=== PATIENT | female | born 1990 | race Caucasian/White ===

== ENCOUNTER 2024-09-24 15:57 | Outpatient (REF) | payer BC, SELFPAY ==
--- NOTE | ~2024-09-24 | MR_ITS ---
EXAMINATION: MR BRAIN WITHOUT THEN WITH IV CONTRAST HISTORY: ASYMMETRIC SENSORINEURAL HEARING LOSS, VERTIGO, EVAL LESION TECHNIQUE: Sagittal T1, and axial FLAIR, gradient echo, and diffusion weighted MR images of the brain were obtained. In addition, high resolution T2-weighted images were obtained through the internal auditory canals. Subsequently, axial and coronal T1-weighted images were obtained through the internal auditory canals before and after the administration of intravenous gadolinium. 5 mL Gadavist was administered. COMPARISON: None FINDINGS: The brain parenchyma is unremarkable, demonstrating normal shell/white differentiation. No foci of abnormal signal intensity are identified. The ventricular system is normal in size and configuration. There is no mass effect or midline shift. No intra or extra-axial fluid collections are identified. There are no foci of restricted diffusion. The bilateral 7th and 8th complexes are unremarkable in appearance without evidence of abnormal nodularity or contrast enhancement. No abnormal contrast enhancement is seen in the remainder of the brain. Normal vascular flow voids are noted in the basilar and carotid arteries. The visualized paranasal sinuses are clear. MR/MR head/brain wo/w con IMPRESSION: Unremarkable MRI of the brain and internal auditory canals without and with contrast. Electronically signed by: Alonzo Ramos MD 09/25/2024 12:56 PM EDT
[2024-09-24] MEDS: gadobutroL 7.5 ML VIAL IVPUSH (16:20)
== END 2024-09-24 15:58 | disposition home or self-care (01) ==
LOC: HO.MRI 15:57
PROVIDERS: PCP Internal Medicine; Visit Provider Physician Assistant Surgical
DX: H90.42 Sensorineural hearing loss, unilateral, left ear, with unrestricted hearing on the contralateral side (principal); H93.12 Tinnitus, left ear
CPT/HCPCS: 70553; A9585

== ENCOUNTER → 2024-09-24 16:15 | Outpatient (BNV) | payer BC, SELFPAY | PROVIDERS: PCP Internal Medicine; Visit Provider Radiology Diagnostic Radiology | DX: H90.42 Sensorineural hearing loss, unilateral, left ear, with unrestricted hearing on the contralateral side (principal) | CPT/HCPCS: 70553 ==

== ENCOUNTER 2025-03-06 12:50 | Outpatient (REF) | payer SELFPAY ==
--- NOTE | 2025-03-06 13:43 | MHC.AU.HA1 ---
Hearing Aid Evaluation Date of Visit: 03/06/25 Historical Information: Description of Hearing: Right Ear: Normal hearing; Left Ear: Normal through 4 kHz, mild to moderate hearing loss 6-8 kHz Summary: Hearing test and medical clearance from [facility]. In January 2024, experienced dizziness, tinnitus, and fullness in left ear. Dx ear infection, prescribed antibiotics; however, sx did not resolve. Finally evaluated by ENT in September 2024, unremarkable MRI. 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 Difficulty understanding the soft, high-pitched voices in loud, reverberant space. Also hoping DEL RIO will help minimize constant tinnitus. Reexplained candidacy, noting normal hearing through 4 kHz, advising unclear how much perceived benefit she will receive. Leonora understands and wants to move forward with trial. Discussed manufacturers, styles, technology levels. Opted for rechargeable RITE, highest technology. Hearing test will likely be >6 months old at fitting. Will need to do updated pure-tone testing prior to fitting DEL RIO. Hearing Aid Prescription: Based on the individual?s shared listening needs, communication environments, dexterity, desire for connectivity, and personal preferences, the following prescription for amplification has been made: Left ear: Make, Model, Color: Phonak Audeo I90-R Color: [place] Battery Size: Rechargeable Home Theatre Technician/Slim Tube: 2S Type of Earmold/Dome/CShell/SlimTip: Medium open dome Accessories/Assistive Technology: Shuttle Final Inspector Plan of Care: Patient wishes to purchase hearing aids as prescribed Action Taken/Action Needed: Hearing Instrument Fitting to be scheduled when materials arrive Primary Diagnosis: H90.42 SNHL Unilateral Left Side, W/Unrestricted Contralateral Hearing Signature: Provider: Charla Corbett, [facility]
--- OUTSIDE RECORDS SUMMARY | 2025-03-06 15:41 | XMS_ITS | Clinical Summary ---
Author Organization [facility] Address [address] [facility] [address] [place] [address] Phone Care Team Providers Care Fuselage Framer Name Role Phone King Simpson MD Unavailable [phone] Agustín Salgado PA-C Primary Care Provider [phone] Rodriguez Blanton MD Unavailable Allergies Active Allergy Reactions Criticality Noted Date Comments Dicloxacillin Hives,Itching 12/11/2021 Medications norgestimate-eth inyl estradioL (TRI-ESTARYLLA) 0.18/0.215/0.25 mg-0.035mg (28) Tab Take 1 tablet by mouth daily. 90 tablet 3 12/06/2024 Active Active Problems Problem Noted Date Diagnosed Date Routine general medical exam ination at a health care facility 12/06/2024 Assessment & Plan (12/06/2024 8:56 AM EDT): We will obtain a CMP, fasting glucose, TSH and lipid panel Patient will be due for her Pap in April 2025 Annual physical 1 year Vaginal discharge 02/02/2024 Assessment & Plan (02/02/2024 10:27 AM EDT): Notes 3 days of vaginal redness, itch and increased discharge in setting of abx use. Discussed OTC remedies and treatment, hand outs given. She will call if worse and not improved/ resolved. Medication management 11/22/2023 Assessment & Plan (11/22/2023 4:58 PM EDT): Patient is currently taking magnesium however I do not see a magnesium level and they are therefore obtain a magnesium and BMP. Her last TSH was noted to be within normal limits back in 2021 Constipation 11/22/2023 Assessment & Plan (11/22/2023 4:58 PM EDT): Continue magnesium supplementation Will obtain a magnesium level and repeat TSH level Memory loss 11/22/2023 Assessment & Plan (11/22/2023 4:57 PM EDT): Patient with some history of short and long-term memory loss. She does carry a history of 2 traumatic events with her mother being an alcoholic as a child and watching her friend about 5 years ago. Her cognitive abilities are intact. She did question ADHD. Given her symptoms and history I have recommended that the patient undergo neuropsych testing for her memory loss as well as questionable ADHD. Referral for N has been placed Resolved Problems Problem Noted Date Diagnosed Date Resolved Date Acute otitis media 01/26/2024 Assessment & Plan (02/02/2024 10:26 AM EDT): Ear exam is nomral, will resolve problem Assessment & Plan (01/26/2024 9:10 AM EDT): Ceftin 500mg bid x 7 days Either tevin or claritin daily F/u if symptoms do not improve OTHER DIAGNOSIS - PLEASE ANNOTATE. 11/22/2023 11/22/2023 Overview (11/22/2023): None Encounters Date Type Department Care Team Description 12/25/2024 9:01 AM EDT - 12/25/2024 11:59 PM EDT Hospital Encounter [facility] [address] [place] [address] Agustín Salgado PA-C Discharge Disposition: Home or Self Care 12/06/2024 8:20 AM EDT Office Visit [facility] Internal Medicine [address] [place] [address] Agustín Salgado PA-C Routine general medical examination at a health care facility (Primary Dx) from Last 3 Months Immunizations Immunization Administration Dates Next Due COVID-19 (Pre-04/05) Moderna Vaccine, mRNA, PF 08/23/2020,07/27/2020 DTP 1995, 4,03/13/1993,01/11 Dtap, 5 Pertussis Antigens 04/13/1998 HPV,quadrivalent 01/10/2009,02/03/2008, 8 Hepatitis A, ped/adol, 2 dose 08/28/2013 Hepatitis B 12/11/1993,01/11/1993,1992 Hepatitis B Adult 12/11/1993,01/11/1993,11/11/18 93 Hib,PRP-T 11/12/1995, 4,03/13/1993,01/11 IPV 10/11/1997, 4,03/13/1993,01/11 Influenza High-Dose Quadriva lent Preservative Free IM 03/21/2020 Influenza Quadrivalent MDCK Preservative Free IM 02/07/2019 Influenza Quadrivalent Prese rvative Free IM 04/14/2022,04/18/2021,03/21/2020 MMR 10/11/1997,1995 Meningococcal MCV4P 08/28/2013,12/01/2007 Td (adult),2 Lf Tetanus Toxo id, PF, Adsorbed 01/14/2005 Tdap 02/26/2021,06/30/2019,01/10/2009 Varicella 01/10/2009,01/01/2001 Family History Medical History Relation Comments No Known Problems Brother No Known Problems Father Diabetes mellitus Maternal Grandfather Cancer Maternal Grandmother Melanoma Maternal Grandmother No Known Problems Mother No Known Problems Son 1 No Known Problems Son 2 Relation Status Comments Brother Alive Father Alive Maternal Grandfather Maternal Grandmother Mother Alive Son 1 Alive Son 2 Alive Social History Tobacco Use Types Packs/Day Years Used Date Smoking Tobacco: Never Smokeless Tobacco: Never Tobacco Cessation:Counseling Given: Not Answered Alcohol Use Standard Drinks/Week Comments Yes 0 (1 standard drink = 0.6 oz pur e alcohol) 1-2 drinks, 2-4 x month Child or Family Care Answer Date Record ed Do you have problems with on e of the following making it difficult for you to work, study, or receive health care? No 12/01/2024 Education Answer Date Recorded Are you interested in help w ith more adult education (for example, completing high school, GED, job training, learning the [place] language, technical skills, or developing parenting skills)? No 12/01/2024 Are you concerned about learning? Not on file 12/01/2024 No 12/01/2024 Yes 12/01/2024 Food Answer Date Recorded Within the past 6 months we worried whether our food would run out before we got money to buy more. Never True 12/01/2024 Within the past 6 months the food we bought just didn't last and we didn't have enough money to get more. Never True Residential Stability Answer Date Recor ded What is your housing situation today? I have mary sing 12/01/2024 How many times have you move d in the past 12 months? Zero (I did not move) 12/01/2024 Paying for Meds Answer Date Recorded Do you have trouble paying for medicines? No 12/01/2024 Paying Utility Bills Answer Date Record ed Do you have trouble paying your heating or elect ricity bill? No 12/01/2024 Transportation Answer Date Recorded Has the lack of transportati on kept you from medical appointments or from getting medications? No 12/01/2024 Unemployment Answer Date Recorded Are you currently unemployed or working on a part-time or temporary basis, and looking for work? No 12/01/2024 Digital Access Answer Date Recorded No 12/01/2024 Yes 12/01/2024 Do you have reliable internet access at home? Ye s 12/01/2024 Do you have a device (e.g., phone, tablet, computer) with a working camera? Yes 12/01/2024 Intimate Partner Violence Answer Date R ecorded Denied Basic Needs Not on file 12/01/2024 In the past 12 months have y ou been in a relationship with a person who hurts, threatens, or tries to control you? No 12/01/2024 Worried food would run out Not on file 12/01 In the past 12 months have y ou been in a relationship with a person who hurts, threatens, or tries to control you? No 12/01/2024 Comments Unknown Sex and Gender Information Value Date Recorded Sex Assigned at Not on file Legal Sex Female 8:57 PM EDT Gender Identity Not on file Sexual Orientation Not on file Last Filed Vital Signs Vital Sign Reading Time Taken Comments Blood Pressure 110/70 12/06/2024 8:10 AM EDT Pulse 77 12/06/2024 8:10 AM EDT Temperature 36.6 C (97.8 F) 01/26/2024 8:27 AM EDT Respiratory Rate 19 12/06/2024 8:10 AM EDT Oxygen Saturation 99% 12/06/2024 8:10 AM EDT Inhaled Oxygen Concentration - - Weight 80.2 kg (176 lb 12.8 oz) 12/06/2024 8:10 AM EDT Height 172.7 cm (5' 7.99 ) 12/06/2024 8:10 AM ED T Body Mass Index 26.89 12/06/2024 8:10 AM EDT Plan of Treatment Upcoming Encounters Date Type Department Care Team (Late st Contact Info) Description 12/11/2025 9:00 AM EDT Office Visit [facility] Internal Medicine [address] [place] [address] Agustín Salgado PA-C [address] [place] [address] [email or web address] Health Maintenance Due Date Last Done Comments INFLUENZA VACCINE (#1) 2025 , 04/18/2021, 03/21/2020, Additional history exists COVID-19 VACCINE ( season) 2025 04/18/2021, 08/23/2020, 07/27/2020 PAP SMEAR 04/20/2025 04/20/2022, 02/13, 09/07/2017, Additional history exists DEPRESSION SCREENING 12/01/2025 12/01/2024 Adult Td,Tdap Booster 02/26/2031 02/26/2021 , 06/30/2019, 01/10/2009, Additional history exists HIB VACCINES Completed 11/12/1995, 11/14, 03/13/1993, Additional history exists HEPATITIS A VACCINES Aged Out 08/28/2013 No long er eligible based on patient's age to complete this topic MENINGOCOCCAL VACCINES (ACWY) Aged Out 08/28/2013, 12/01/2007 No longer eligibl e based on patient's age to complete this topic HEPATITIS C SCREENING Completed 10/24/2020 HIV ONE-TIME SCREENING (18-65 YEARS) Completed 01/15/2022 SMOKING STATUS SCREENING (Once After 26 Yrs) Completed 12/06/2024 MENINGOCOCCAL VACCINES (B) Aged Out N o longer eligible based on patient's age to complete this topic PNEUMOCOCCAL VACCINES (0-49 years) Aged Out No longer eligible based on patient's age to complete this topic Medical Devices Not on file Procedures Procedure Name Priority Date/Time Associated Diagnosis Comments LIPID PANEL Routine 12/25/2024 9:01 AM EDT Routine general medical examination at a health care facility GLUCOSE, FASTING Routine 12/25/2024 9:01 AM EDT Routine general medical examination at a health care facility TSH WITH REFLEX Routine 12/25/2024 9:01 AM EDT Routine general medical examination at a [facility] care facility COMPREHENSIVE METABOLIC PANEL Routine 12/25/2024 9:01 AM EDT Routine general medical examination at a health care facility PAP TEST Routine 04/20/2022 from Last 3 Months or Most Recently Relevant to Health Maintenance Results * Glucose, fasting (12/25/2024 9:01 AM EDT) FASTING GLUCOSE 74 70 - 95 mg/dL [facility] Blood 12/25/2024 9:01 AM EDT 12/25/2024 9:04 AM EDT us Agustín Salgado PA-C LAB BLOOD ORDERABLES Final Re sult [address] [address] * Comprehensive metabolic panel (12/25/2024 9:01 AM EDT) SODIUM 137 133 - 146 mmol/L [facility] POTASSIUM 4.0 3.3 - 5.1 mmol/L [facility] CHLORIDE 101 96 - 108 mmol/L [facility] CO2 26 21 - 35 mmol/L [facility] BUN 12 6 - 19 mg/dL [facility] CREATININE 0.80 0.5 - 1.5 mg/dL [facility] GLUCOSE 81 70 - 99 mg/dL [facility] ALBUMIN 4.2 3.9 - 4.8 g/dL [facility] TOTAL PROTEIN 7.5 6.5 - 8.0 g/dL [facility] CALCIUM 9.5 8.4 - 10.3 mg/dL [facility] ALKALINE PHOSPHATASE 103 39 - 117 U/L [facility] TOTAL BILIRUBIN 1.0 0.0 - 1.2 mg/dL [facility] AST 23 0 - 37 U/L [facility] ALT 12 0 - 40 U/L [facility] GLOBULIN 3.3 1 - 4.8 g/dL [facility] EGFR 100 >59 mL/min/1.7 3m2 [facility] Comment:Estimated glomerular filtration rate calculated using the CKD-EPI refit equation. ANION GAP 14 10 - 20 mmol/L [facility] Blood 12/25/2024 9:01 AM EDT 12/25/2024 9:04 AM EDT us Agustín Salgado PA-C LAB BLOOD ORDERABLES Final Re sult [address] [address] * TSH with reflex (12/25/2024 9:01 AM EDT) TSH 0.96 0.27 - 4.20 uIU/mL [facility] Blood 12/25/2024 9:01 AM EDT 12/25/2024 9:04 AM EDT us Agustín Salgado PA-C LAB BLOOD ORDERABLES Final Re sult Performing Organization Address [facility] Co de Phone Number [address] [address] * (ABNORMAL) Lipid panel (12/25/2024 9:01 AM EDT) HDL 70 mg/dL [facility] Comment: Interpretation <40 mg/dL: Low HDL cholesterol (major risk factor for CHD) Greater than or equal to 60 mg/dL: High HDL cholesterol ( negative risk factor for CHD) HDL - cholesterol is affected by a number of factors, e.g. smoking, excerise, hormones, sex and age. CHOLESTEROL 234 0 - 240 mg/dL [facility] TRIGLYCERIDES 80 30 - 160 mg/dL [facility] LDL 148(H) 50 - 129 mg/dL [facility] Comment: LDL levels in terms of risk for coronary heart disease: <100 mg/dL: Optimal 100-129 mg/dL: Near or above optimal 130-159 mg/dL: Borderline high 160-189 mg/dL: High >190 mg/dL: Very High CARDIAC RISK RATIO 3.3 3.3 - 4.4 C [facility] Blood 12/25/2024 9:01 AM EDT 12/25/2024 9:04 AM EDT us Agustín Salgado PA-C LAB BLOOD ORDERABLES Final Re sult Performing Organization Address [facility] Co de Phone Number [address] [address] * Pap Smear (04/20/2022) us Historical Provider CYTOLOGY ORDERABLES Edite d Result - Final from Last 3 Months or Most Recently Relevant to Health Maintenance Insurance [facility] [place] [address] [facility] [place] [address] [facility] [place] [address] [facility] Care Teams Fuselage Framer Relationship Specialty Start Date End Date Agustín Salgado PA-C [address] [place] [phone] [email or web address] PCP - General Physician Nutrition Representative 12/13/23 King Simpson MD [address] [place] [address] [address] [place] [address] Obstetrics and Gynecology 04/14/22 Rodriguez Blanton MD [address] [place] [phone] [email or web address] Insurance Assigned Provider 08/19/24 Additional Source Comments The information contained in this document represents components of the legal health record. It is not the complete legal health record.[facility]
--- OUTSIDE RECORDS SUMMARY | 2025-03-06 15:42 | XMS_ITS | Clinical Summary ---
Author Organization [facility] Address [address] [place] [address] Care Team Providers Care Neon Sign Mechanic Name Role Phone Rodriguez Blanton MD Primary Care Provider [phone] Allergies Active Allergy Reactions Criticality Noted Date Comments Dicloxacillin Hives,Itching,Rash/Dermatitis Medium Medications Tri-Estarylla 0.18/0.215/0.25 MG-35 MCG per tablet Take 1 tablet by mouth. 08/30/2024 Active meclizine (ANTIVERT) 12.5 MG tabletIndication s:Peripheral vertigo involving left ear Take 1 tablet (12.5 mg total) by mouth 3 (three) times a day as needed for dizziness. 30 tablet 3 11/15/2024 Active Active Problems No known active problems Social History Tobacco Use Types Packs/Day Years Used Date Smoking Tobacco: Never Smokeless Tobacco: Never Tobacco Cessation:Counseling Given: Not Answered Alcohol Use Standard Drinks/Week Comments Never 0 (1 standard drink = 0.6 oz pur e alcohol) Comments No Sex and Gender Information Value Date Recorded Sex Assigned at Female 09/05/2024 7:14 AM EDT Legal Sex Female 1:45 PM EST Gender Identity Female 09/05/2024 7:14 AM EDT Sexual Orientation Choose not to disclose 2024 7:14 AM EDT Last Filed Vital Signs Vital Sign Reading Time Taken Comments Blood Pressure - - Pulse - - Temperature - - Respiratory Rate - - Oxygen Saturation - - Inhaled Oxygen Concentration - - Weight 77.1 kg (170 lb) 11/15/2024 2:32 PM EDT Height 172.7 cm (5' 8 ) 11/15/2024 2:32 PM EDT Body Mass Index 25.85 11/15/2024 2:32 PM EDT Plan of Treatment Health Maintenance Due Date Last Done Comments Hepatitis C Virus Screening 1992 HIV Screening 2005 DTaP/Tdap/Td Vaccines (1 - Tdap) 10/13/2011 Hepatitis B Vaccines (1 of 3 - 19+ 3-dose series) 10/13/2011 Pap Smear (Ages 21-65) 2013 HPV Vaccines (1 - 3-dose SCDM series) 10/13/2019 Influenza Vaccine 01/12/2025 04/14/2022, , 03/21/2020, Additional history exists COVID-19 Vaccine (2024- season) 2025 08/23/2020, 07/27/2020 Pneumococcal Vaccine: Pediatric (0-5 Years) and At-Risk Patients (6 to 49 Years) Aged Out No longer eligible based on patient's age to complete this topic Insurance [employer] [facility] Care Teams Neon Sign Mechanic Relationship Specialty Start Date End Date Rodriguez Blanton MD [address] [place] [phone] PCP - General Internal Medicine 09/12/24
--- OUTSIDE RECORDS SUMMARY | 2025-03-06 15:42 | XMS_ITS | Encounter Summary ---
Author Organization [facility] Address [address] [employer] [facility] [address] [place] [address] Phone Care Team Providers Care Prior Authorization Nurse Name Role Phone Balwinder Blunt MD Unavailable [phone] Alicia Kitchen UX LEAD Primary Care Provider [phone] King Simpson MD Unavailable [phone] Unknown, Unknown Primary Care Provider Agustín Carpio PA-C Primary Care Provider [phone] Rodriguez Blanton MD Unavailable Encounter Details Date Type Department Care Team (Late st Contact Info) Description 06/04/2022 Nurse Triage [facility] Internal Medicine [address] [place] [address] Alicia Kitchen, UX LEAD [address] [facility] [address] [place] [address] [email or web address] Social History Tobacco Use Types Packs/Day Years Used Date Smoking Tobacco: Never Smokeless Tobacco: Never Alcohol Use Standard Drinks/Week Comments Not Currently 0 (1 standard drink = 0.6 oz pur e alcohol) Child or Family Care Answer Date Record ed Do you have problems with on e of the following making it difficult for you to work, study, or receive health care? No 11/15/2021 Education Answer Date Recorded Are you interested in help w ith more adult education (for example, completing high school, GED, job training, learning the Thai language, technical skills, or developing parenting skills)? No 11/15/2021 Food Answer Date Recorded Within the past 6 months we worried whether our food would run out before we got money to buy more. Never True 11/15/2021 Within the past 6 months the food we bought just didn't last and we didn't have enough money to get more. Never True Residential Stability Answer Date Recor ded What is your housing situation today? I have mary ozuna 11/15/2021 How many times have you move d in the past 12 months? Zero (I did not move) 11/15/2021 06 Are you worried that in t he next 2 months, you may not have your own housing to live in? No 11/15/2021 Paying for Meds Answer Date Recorded Do you have trouble paying for medicines? No 11/15/2021 Paying Utility Bills Answer Date Record ed Do you have trouble paying your heating or elect ricity bill? No 11/15/2021 Transportation Answer Date Recorded Has the lack of transportati on kept you from medical appointments or from getting medications? No 11/15/2021 Unemployment Answer Date Recorded Are you currently unemployed or working on a part-time or temporary basis, and looking for work? No 11/15/2021 Comments Unknown Sex and Gender Information Value Date Recorded Sex Assigned at Not on file Legal Sex Female 8:57 PM EDT Gender Identity Not on file Sexual Orientation Not on file documented as of this encounter Progress Notes * Alicia Kitchen NP - 06/12/2022 2:24 PM EST Virtual visit at 3:00 (put in computer at end of schedule but tell her 3) * Kelsea Chance RN - 06/12/2022 1:53 PM EST Leonora has been doing at home treatment and using sudafed PE for almost the past 2 weeks. Asking if you would make an exception and send a Rx Nurse Triage Encounter Note Reason for Triage Leonorasaman Neves contacted office for None Call Disposition Go To Urgent Care Patient/caregiver understands and will follow disposition: No, Wishes To Speak With Pcp Patient/caregiver understands and will follow care advice: Yes, With Modifications Disposition Comments: Protocols used: Sinus Pain Or Jxmegqfbnb-Fbxmt-Yb Care Advice Given Care Advice Patient/Caregiver understands and will follow care advice?: Yes, with modifications SEE IN OFFICE TODAY: * You need to be examined today. Let me give you an appointment. * IF NO AVAILABLE APPOINTMENTS: You need to be seen in the Urgent Care Center. Go to the one at [facility]. Go there today. A nearby Urgent Care Center is often a good source of care. Another choice is to go to the Emergency Department. HYDRATION: * Drink plenty of liquids (6-8 glasses of water daily). If the air in your home is dry, use a cool mist humidifier EXPECTED COURSE: * Sinus congestion from viral upper respiratory infections (colds) usually lasts 5 to 10 days. * Occasionally a cold can worsen and turn into bacterial sinusitis. Clues to this are sinus symptoms lasting longer than 10 days, fever lasting longer than 3 days and worsening pain. Bacterial sinusitis may need antibiotic treatment. MEDICINES FOR STUFFY OR RUNNY NOSE: * Most cold medicines that are available iuan-gpb-aemiwnr (OTC) are not helpful. * Antihistamines are only helpful if you also have nasal allergies. * If you have a very runny nose and you really think you need a medicine, you can try using a nasaldecongestant for a couple days. NASAL DECONGESTANTS FOR A VERY STUFFY NOSE: * MOST PEOPLE DO NOT NEED TO USE THESE MEDICINES. * If your nose feels blocked, you should try using nasal washes first. * If you have a very stuffy nose, nasal decongestant medicines can shrink the swollen nasal mucosa and allow for easier breathing. If you have a very runny nose, these medicines can reduce the amountof drainage. They may be taken as pills by mouth or as a nasal spray. * Pseudoephedrine (Sudafed): Available qvva-pnx-blibttr in pill form. Typical adult dosage is two 30 mg tablets every 6 hours. * Oxymetazoline Nasal Drops (Afrin in [place]; Drixoral in [place]): Available tted-fyh-vpxrjyi. Clean out the nose before using. Perry each nostril once, wait one minute for absorption, and then spray a second time. * Phenylephrine Nasal Drops (Royer-Synephrine): Available twln-yhi-ziwibnn. Clean out the nose beforeusing. Perry each nostril once, wait one minute for absorption, and then spray a second time. PAIN AND FEVER MEDICINES: * For pain or fever relief, take either acetaminophen or ibuprofen. * They are ayth-ndx-dziznck (OTC) drugs that help treat both fever and pain. You can buy them at the drugstore. * Treat fevers above 101 F (38.3 C). The goal of fever therapy is to bring the fever down to a comfortable level. Remember that fever medicine usually lowers fever 2 degrees F (1 - 1 1/2 degrees C). * ACETAMINOPHEN REGULAR STRENGTH TYLENOL: Take 650 mg (two 325 mg pills) by mouth every 4 to 6 hours as needed. Each Regular Strength Tylenol pill has 325 mg of acetaminophen. The most you should take each day is 3,250 mg (10 pills a day). * ACETAMINOPHEN - EXTRA STRENGTH TYLENOL: Take 1,000 mg (two 500 mg pills) every 8 hours as needed.Each Extra Strength Tylenol pill has 500 mg of acetaminophen. The most you should take each day is 3,000 mg (6 pills a day). * IBUPROFEN (E.G., MOTRIN, ADVIL): Take 400 mg (two 200 mg pills) by mouth every 6 hours. The most you should take each day is 1,200 mg (six 200 mg pills), unless your doctor has told you to take more. Patient will call back with additional questions or if symptoms change or worsen Kelsea Chance RN Reason for Disposition and Assessment Reason for Disposition ??? Sinus pain (not just congestion) and fever Answer Assessment - Initial Assessment Questions 1. LOCATION: Where does it hurt? Eyes/religious 2. ONSET: When did the sinus pain start? (e.g., hours, days) A couple of weeks ago 3. SEVERITY: How bad is the pain? (Scale 1-10; mild, moderate or severe) - MILD (1-3): doesn't interfere with normal activities - MODERATE (4-7): interferes with normal activities (e.g., work or school) or awakens from sleep - SEVERE (8-10): excruciating pain and patient unable to do any normal activities moderate 4. RECURRENT SYMPTOM: Have you ever had sinus problems before? If Yes, ask: When was the last time? and What happened that time? Yes-unsure 5. NASAL CONGESTION: Is the nose blocked? If Yes, ask: Can you open it or must you breathe through your mouth? Was completely blocked last week but is draining green discharge now 6. NASAL DISCHARGE: Do you have discharge from your nose? If so ask, What color? green 7. FEVER: Do you have a fever? If Yes, ask: What is it, how was it measured, and when did it start? no 8. OTHER SYMPTOMS: Do you have any other symptoms? (e.g., sore throat, cough, earache, difficultybreathing) Headache, productive cough with green mucus 9. : Is there any chance you are ? When was your last menstrual period? no Protocols used: SINUS PAIN OR [id number]-CF * Guillermina Beasley - 06/12/2022 1:33 PM EST Pt called back to follow up on this, please contact and advise. * Jared Degroot - 06/12/2022 9:17 AM EST Pt calling back to talk with nurse with recommendation documented in this encounter Plan of Treatment Upcoming Encounters Date Type Department Care Team (Late st Contact Info) Description 12/11/2025 9:00 AM EDT [facility] Internal Medicine [address] [place] [address] Agustín Salgado PA-C [address] [place] [address] [email or web address] documented as of this encounter Visit Diagnoses Not on filedocumented in this encounter Additional Health Concerns Assessment Noted Time PHQ-2 Depression Total Score: 2 11/16/19 22 8:59 AM EDT documented as of this encounter Care Teams Prior Authorization Nurse Relationship Specialty Start Date End Date Alicia Kitchen, UX LEAD [address] [place] [address] PCP - General Family Medicine 07/02/20 09/05/23 Unknown, Unknown, MD PCP - General 09/06/23 12/12/23 Agustín Salgado PA-C [address] [place] [address] [email or web address] PCP - General Physician Residential Treatment Staff 12/13/23 Balwinder Blunt MD [address] [place] [address] [email or web address] Insurance Assigned Provider 09/18/23 08/19/24 King Simpson MD [address] [place] [phone] Obstetrics and Gynecology 04/14/22 Rodriguez Blanton MD [address] [place] [address] [email or web address] Insurance Assigned Provider 08/19/24 documented as of this encounter Additional Source Comments The information contained in this document represents components of the legal health record. It is not the complete legal health record.[facility]
--- OUTSIDE RECORDS SUMMARY | 2025-03-06 15:42 | XMS_ITS ---
Author Name [facility] Organization Unknown History of Medication Use Medication Directions Dispensed Refills Start Date End Date Stat us meclizine (ANTIVERT) 12.5 MG tablet Take 1 tablet (12.5 mg total) by mouth 3 (three) times a day as needed for dizziness. 11/15/2024 active Tri-Estarylla 0.18/0.215/0.25 MG-35 MCG per tablet Take 1 tablet by mouth. 08/30/2024 active MAGNESIUM PO Take 250 mg by mouth daily. active Allergies Allergen Reaction Severity Comment Documented Date Source Statu s DICLOXACILLIN RASH/DERMATITIS 12/11/2021 [facility] active Encounters Encounter Type Encounter Reason Primary Diagnosis Location Date Ambulatory Follow-up Follow-up [facility] 11/15/2024 Ambulatory Sensorineural hearin g loss, unilateral, left ear, with unrestricted hearing on the contralateral side Sensorineural hearing loss, unilateral, left ear, with unrestricted hearing on the contralateral side [facility] 09/12/2024 Care Team Organization Name Specialty Phone Email Start Date End Da te [place] [facility] Primary Care 09/13/2024 [facility] Primary Care 09/12/2024 12/14/2024 [facility] 07/28/2024
== END 2025-03-06 12:51 | disposition home or self-care (01) ==
LOC: HO.HAP 12:50
PROVIDERS: Visit Provider Physician Assistant Surgical
DX: Z46.1 Encounter for fitting and adjustment of hearing aid (principal); H90.42 Sensorineural hearing loss, unilateral, left ear, with unrestricted hearing on the contralateral side
CPT/HCPCS: 92590

== ENCOUNTER 2025-05-08 09:50 | Outpatient (REF) | payer SELFPAY ==
--- NOTE | 2025-05-08 10:57 | MHC.AU.HA2 ---
Hearing Instrument Fitting- Adult- Binaural Date of Visit: 05/08/25 Left Ear: Make, Model, Color, Serial Number: Phonak Sophiao [id number] SN: [id number] Color: [place] [employer] Booking Representative Repair Warranty: 04/06/2028 [employer] Representative Loss and Damage Warranty: 04/06/2028 [facility] Service Plan: OPTED OUT Battery Size: Rechargeable Biology Specimen Technician/Slim Tube: 2S Earmold/Dome/CShell/SlimTip: Medium open dome (no retention tail) Type of Wax Guard: CeruStop Accessories/Assistive Technology: Phonak Panel Monitor THA SN: [id number] Summary of Fitting: Ran feedback analyzer and real ear measures. Decreased to 90% gain level. Discussed care, use, and rechargeability including manually turning on/off, VC use, and changing domes and wax guards. Discussed bluetooth and myPhonak mercedes but did not pair at this time. Practiced insertion and removal. Explained importance of daily, consistent use in acclimating to [place] R[place]. Avid swimmer, recommended purchasing electronic dehumidifier. Recommendations: A hearing instrument follow-up was scheduled. Diagnosis Code(s): Primary Diagnosis: H90.42 SNHL Unilateral Left Side, W/Unrestricted Contralateral Hearing Signature: Provider: Charla Corbett, [facility]
--- OUTSIDE RECORDS SUMMARY | 2025-05-08 11:34 | XMS_ITS | Clinical Summary ---
Author Organization [facility] Address [address] [place] [address] Care Team Providers Care Grey Iron Molder Name Role Phone Rodriguez Blanton MD Primary Care Provider [phone] Allergies Active Allergy Reactions Criticality Noted Date [...] series) 10/13/2011 Pap Smear (Ages 21-65) 2013 Influenza Vaccine 01/12/2025 04/14/2022, , 03/21/2020, Additional history exists COVID-19 Vaccine (2024- season) 2025 08/23/2020, 07/27/2020 HPV Vaccines (No Doses Required) Completed Pneumococcal Vaccine: Pediatric (0-5 Years) and At-Risk Patients (6 to 49 Years) Aged Out No longer eligible based on patient's age to complete this topic Insurance [employer] OUT [facility] Care Teams Grey Iron Molder Relationship Specialty Start Date End Date Rodriguez Blanton MD [address] [place] [address] PCP - General Internal Medicine 09/12/24
--- OUTSIDE RECORDS SUMMARY | 2025-05-08 11:34 | XMS_ITS | Clinical Summary ---
Author Organization [facility] Address [address] [employer] [facility] [address] [place] [address] Phone Care Team Providers Care Dye Box Operator Name Role Phone King Simpson MD Unavailable [phone] Agustín Salgado PA-C Primary Care Provider [phone] Rodriguez Blanton MD Unavailable Allergies Active Allergy [...] PLEASE ANNOTATE. 11/22/2023 11/22/2023 Overview (11/22/2023): None Immunizations Immunization Administration Dates Next Due COVID-19 [...] high school, GED, job training, learning the British language, technical skills, or developing parenting skills)? [...] 8:27 AM EDT Respiratory Rate 19 12/06/2024 8:1 0 AM EDT Oxygen Saturation 99% 12/06/2024 8:10 [...] Description 12/11/2025 9:00 AM EDT Office Visit [facility] Internal Medicine [address] [place], [place] [id number] Agustín Salgado PA-C [address] [place] [address] [email or web address] Health Maintenance Due Date Last Done Comments [...] Procedure Name Priority Date/Time Associated Diagnosis Comments PAP TEST Routine 04/20/2022 from Last 3 Months or Most Recently Relevant to Health Maintenance Results * Pap Smear (04/20/2022) [facility] Provider CYTOLOGY ORDERABLES Edite d Result - Final from Last 3 Months or Most Recently Relevant to Health Maintenance Insurance [facility] [place] [place] [address] [place] [address] [place] [address] [place] [address] [place] [address] [place] [address] [facility] Care Teams Dye Box Operator Relationship Specialty Start Date End Date Agustín Salgado PA-C [address] [place] [address] [email or web address] PCP - General Physician Financial Operations Clerk 12/13/23 King Simpson MD [address] [place] [address] [address] [place] [address] Obstetrics and Gynecology 04/14/22 Rodriguez Blanton MD [address] [place] [address] [email or web address] Insurance Assigned Provider 08/19/24 Additional Source Comments The information contained in this document represents components of the legal health record. It is not the complete legal health record.[facility]
--- OUTSIDE RECORDS SUMMARY | 2025-05-08 11:34 | XMS_ITS | Encounter Summary ---
Author Organization [facility] Address [address] [employer] [facility] [address] [place] [address] Phone Care Team Providers Care Color Checker Name Role Phone Balwinder Blunt MD Unavailable [phone] Alicia Kitchen MEDICAL OFFICE TECHNOLOGIST Primary Care Provider [phone] King Simpson MD Unavailable [phone] Unknown, Unknown Primary Care Provider Agustín Carpio PA-C Primary Care Provider [phone] Rodriguez Blanton MD Unavailable Encounter Details Date Type Department Care Team (Late st Contact Info) Description 06/04/2022 Nurse Triage [facility] Internal Medicine [address] [place] [address] Alicia Kitchen, MEDICAL OFFICE TECHNOLOGIST [address] [facility] [address] [place] [address] [email or web address] Social History Tobacco Use Types Packs/Day Years [...] high school, GED, job training, learning the Danish language, technical skills, or developing parenting skills)? [...] Disposition Comments: Protocols used: Sinus Pain Or Qungobfxpx-Unleg-Jk Care Advice Given Care Advice Patient/Caregiver understands and will follow care advice?: Yes, with modifications SEE IN OFFICE TODAY: * You need to be examined today. Let me give you an appointment. * IF NO AVAILABLE APPOINTMENTS: You need to be seen in the Urgent Care Center. Go to the one at [facility]. Go there today. A nearby Urgent Care [...] * Most cold medicines that are available biqu-nmb-dshsrcr (OTC) are not helpful. * Antihistamines are [...] a nasal spray. * Pseudoephedrine (Sudafed): Available wueh-jqb-ppcazwf in pill form. Typical adult dosage is two 30 mg tablets every 6 hours. * Oxymetazoline Nasal Drops (Afrin in [place]; Drixoral in [place]): Available gtah-kcs-ckkbajo. Clean out the nose before using. Brewster each nostril once, wait one minute for absorption, and then spray a second time. * Phenylephrine Nasal Drops (Royer-Synephrine): Available gsjz-mcd-hiiksxk. Clean out the nose beforeusing. Brewster each nostril once, wait one minute for absorption, and then spray a second time. PAIN AND FEVER MEDICINES: * For pain or fever relief, take either acetaminophen or ibuprofen. * They are zxmb-clg-qkgrdba (OTC) drugs that help treat both fever [...] Questions 1. LOCATION: Where does it hurt? Eyes/anabaptism 2. ONSET: When did the sinus pain [...] period? no Protocols used: SINUS PAIN OR TPWUEKOGSX-QAUEZ-CS * Guillermina Beasley - 06/12/2022 1:33 PM EST Pt called back to follow up on this, please contact and advise. * Jared Degroot - 06/12/2022 9:17 AM EST Pt calling back to talk with nurse with recommendation documented in this encounter Plan of Treatment Upcoming Encounters Date Type Department Care Team (Late st Contact Info) Description 12/11/2025 9:00 AM EDT [facility] [place] Internal Medicine [address] [place] [address] Agustín Salgado PA-C [address] [place] [address] [email or web address] documented as of this encounter Visit Diagnoses Not on filedocumented in this encounter Additional Health Concerns Assessment Noted Time PHQ-2 Depression Total Score: 2 11/16/19 22 8:59 AM EDT documented as of this encounter Care Teams Color Checker Relationship Specialty Start Date End Date Alicia Kitchen, MEDICAL OFFICE TECHNOLOGIST [address] [place] [address] PCP - General Family Medicine 07/02/20 09/05/23 Unknown, Unknown, MD PCP - General 09/06/23 12/12/23 Agustín Salgado PA-C [address] [place] [address] PCP - General Physician Automatic Riveting Machine Operator 12/13/23 Balwinder Blunt MD [address] [place] [phone] [email or web address] Insurance Assigned Provider 09/18/23 08/19/24 King Simpson MD [address] [place] [phone] Obstetrics and Gynecology 04/14/22 Rodriguez Blanton MD [address] [place] [address] [email or web address] Insurance Assigned Provider 08/19/24 documented as of this encounter Additional Source Comments The information contained in this document represents components of the legal health record. It is not the complete legal health record.[facility]
== END 2025-05-08 09:51 | disposition home or self-care (01) ==
LOC: HO.HAP 09:50
PROVIDERS: Visit Provider Internal Medicine
DX: H90.42 Sensorineural hearing loss, unilateral, left ear, with unrestricted hearing on the contralateral side (principal)
CPT/HCPCS: V5257